=== PATIENT | female | born 1995 | race Two or more races ===

== ENCOUNTER 2023-02-07 13:40 | Inpatient (IN) | payer OTHER ==
[~2023-02-07] VITALS: Ht 152.4 cm; Wt 81.6 kg
[2023-02-07] MEDS ORDERED: PRENATABS RX T1 EACH PO (15:06)
[2023-02-07] MEDS ORDERED: IRON236 MG PO (15:06)
[2023-02-07] MEDS ORDERED: ADULT LOW DOSE81 M1 PO (15:07)
== END 2023-02-08 18:44 | disposition home or self-care (01) | DRG 832 ==
LOC: LDR 13:40
PROVIDERS: ADMIT Specialist; ATTEND Specialist
PROC: 4A1HXCZ Monitoring of Products of Conception, Cardiac Rate, External Approach (ICD-10-PCS; principal; 2023-02-07)
DX: O36.5932 Maternal care for other known or suspected poor fetal growth, third trimester, fetus 2 (principal); N39.0 Urinary tract infection, site not specified; O23.43 Unspecified infection of urinary tract in pregnancy, third trimester; O99.013 Anemia complicating pregnancy, third trimester; D64.9 Anemia, unspecified; O30.043 Twin pregnancy, dichorionic/diamniotic, third trimester; Z3A.32 32 weeks gestation of pregnancy; Z20.822 Contact with and (suspected) exposure to COVID-19

== ENCOUNTER 2023-02-11 08:04 | Inpatient (IN) | payer OTHER ==
[~2023-02-11] VITALS: Ht 152.4 cm; Wt 1.4 kg
[~2023-02-11 08:04] MED LIST: ADULT LOW DOSE81 M1 PO; IRON236 MG PO; PRENATABS RX T1 EACH PO
[2023-02-14] MEDS ORDERED: IBU800 MG PO (07:48)
[2023-02-14] MEDS ORDERED: COLACE100 MG PO (07:48)
[2023-02-14] MEDS ORDERED: IRON 100-VITAM1 EACH PO (07:51)
== END 2023-02-14 17:43 | disposition home or self-care (01) | DRG 786 ==
LOC: OB/GYN 08:04 → LDR 10:15 → OB/GYN 20:40 → O/R 02-13 09:16 → OB/GYN 02-13 09:17
PROVIDERS: ADMIT Specialist; ATTEND Specialist
PROC: 4A1HXCZ Monitoring of Products of Conception, Cardiac Rate, External Approach (ICD-10-PCS; 2023-02-11)
PROC: 10D00Z1 Extraction of Products of Conception, Low, Open Approach (ICD-10-PCS; principal; 2023-02-11 18:15)
DX: O36.5931 Maternal care for other known or suspected poor fetal growth, third trimester, fetus 1 (principal); O60.14X2 Preterm labor third trimester with preterm delivery third trimester, fetus 2; O99.02 Anemia complicating childbirth; D64.9 Anemia, unspecified; O30.043 Twin pregnancy, dichorionic/diamniotic, third trimester; Z3A.32 32 weeks gestation of pregnancy; Z37.2 Twins, both liveborn; Z20.822 Contact with and (suspected) exposure to COVID-19